=== PATIENT | female | born 1995 | race Caucasian/White ===

== ENCOUNTER 2021-02-12 19:39 | Emergency (ER) | payer MEDICAID, OTHER, SELFPAY | END 2021-02-12 20:45 | LOC: NAV ERS 19:39 | DX: M25.531 Pain in right wrist (principal); M25.532 Pain in left wrist; I10 Essential (primary) hypertension; E11.9 Type 2 diabetes mellitus without complications; F17.210 Nicotine dependence, cigarettes, uncomplicated; X58.XXXA Exposure to other specified factors, initial encounter ==

== ENCOUNTER 2024-03-13 20:59 | Emergency (ER) | payer OTHER ==
[2024-03-13] MEDS ORDERED: Lidocaine 1% w/Epinephrine 1:100K 20 ML VIAL ONE (21:16)
[2024-03-13] MEDS ORDERED: Boostrix 0.5 ML (Tdap) VIAL (>/=7 yrs of age) ONE (21:17)
[2024-03-13] MEDS ORDERED: HYDROcodone/Acetaminophen 10/325 mg Tablet ONE (21:17)
[2024-03-13] MEDS ORDERED: Bacitracin 1 PK ONE (22:37)
== END 2024-03-13 22:44 | disposition home or self-care (01) ==
LOC: NAV ERS 20:59
DX: S61.411A Laceration without foreign body of right hand, initial encounter (principal); I10 Essential (primary) hypertension; E11.9 Type 2 diabetes mellitus without complications; F17.210 Nicotine dependence, cigarettes, uncomplicated; Z23 Encounter for immunization; W25.XXXA Contact with sharp glass, initial encounter
CPT/HCPCS: 12002; 90471; 90715